=== PATIENT | female | born 2000 | race Caucasian/White ===

== ENCOUNTER 2019-02-04 18:54 | Inpatient (IN) ==
[2019-02-04] MEDS ORDERED: ACETAMINOPHEN 500 MG TABLET PO STA (20:25)
[2019-02-04] MEDS ORDERED: SODIUM CHLORIDE 0.9% 1,000 ML IV STA ×2 (20:25→22:50)
[2019-02-04 20:49] LABS: Bilirubin,Total 0.5 MG/DL (0.2-1.0); Calcium 8.2 MG/DL (8.5-10.1); Osmolality,Calculated 262.7 MOS/KG (273-304); Total Protein 7.4 G/DL (6.4-8.3)
[2019-02-04 20:57] LABS: Basophils % 0.2 % (0.0-0.8); Hematocrit 31.8 VOL% (35.7-47.0); Hemoglobin 10.4 GM/DL (12.0-16.0); Immature Granulocytes % 0.6 %; Immature Granulocytes Absolute 0.11 #; Lymphocytes # 1.2 10*3/uL (1.4-4.0); Lymphocytes % 6.8 % (21.3-54.2); Mean Corpuscular HGB Conc 32.7 GM/DL (32-36); Mean Corpuscular Volume 84.6 FL (87-102); Mean Platelet Volume 11.5 FL (9.6-12.0); Neutrophils % 83.4 % (38.7-73.9); Platelet Count 190 T/CUMM (130-400); Red Blood Count 3.76 MC/CUMM (3.8-5.5); Red Cell Distribution Width 14.6 % (9.3-17.3); White Blood Count 17.1 T/CUMM (4-12)
[2019-02-04] MEDS ORDERED: LEVOFLOXACIN INJ 750 MG in PREMIX 1 EACH IV STA (21:57)
[2019-02-04 22:08] LABS: Sedimentation Rate-Westergren 106 MM/HR (0-20)
[2019-02-04 22:13] LABS: Apearance,Urine CLOUDY (Clear); Bacteria,Urine Many /HPF (Few); Bilirubin,Urine Negative (Negative); Blood, Urine Large mg/dL (Negative); Glucose,Urine (UA) Negative (Negative); Ketones,Urine Negative (Negative); Mucus,Urine Few /LPF (Occasional); Nitrite,Urine Positive (Negative); Protein,Urine 100 MG/DL; RBC,Urine 27 /HPF (0-4); Squamous Epithelial Cell,Urine Occasional /HPF (0-10); Urine Color Amber (Yellow); Urine Specific Gravity 1.017 (1.001-1.035); Urine Urobilinogen < 2.0 EU/DL (0.2-1.0); WBC,Urine 418 /HPF (0-6)
[2019-02-05] MEDS ORDERED: SODIUM CHLOR 0.9% KCL 40 MEQ 40 MEQ/1,000 ML BAG IV SCH (01:00)
[2019-02-05] MEDS: SODIUM CHLORIDE 0.9% 1,000 ML IV SCH ×3 (02:14→14:45)
[2019-02-05 05:25] LABS: Basophils % 0.3 % (0.0-0.8); Eosinophils % 0.2 % (0.00-10.9); Hematocrit 27.9 VOL% (35.7-47.0); Hemoglobin 9.1 GM/DL (12.0-16.0); Immature Granulocytes % 0.7 %; Immature Granulocytes Absolute 0.09 #; Lymphocytes # 1.7 10*3/uL (1.4-4.0); Lymphocytes % 13.1 % (21.3-54.2); Mean Corpuscular HGB Conc 32.6 GM/DL (32-36); Mean Corpuscular Volume 86.1 FL (87-102); Mean Platelet Volume 10.8 FL (9.6-12.0); Monocytes % 15.4 % (1.7-12.7); Neutrophils % 70.3 % (38.7-73.9); Platelet Count 173 T/CUMM (130-400); Red Blood Count 3.24 MC/CUMM (3.8-5.5); Red Cell Distribution Width 14.8 % (9.3-17.3); White Blood Count 12.6 T/CUMM (4-12)
[2019-02-05 05:57] LABS: Albumin 2.3 G/DL (3.4-5.0); Bilirubin,Total 0.4 MG/DL (0.2-1.0); Total Protein 6.2 G/DL (6.4-8.3)
[2019-02-05 06:00] LABS: Hypochromasia 1+; Microcytosis Slight; Ovalocytes Slight; Platelet Estimate Adequate
[2019-02-05] MEDS: ACETAMINOPHEN 325 MG TABLET PO PRN ×4 (06:50→20:27)
[2019-02-05] MEDS: PANTOPRAZOLE 40 MG TABLET PO SCH (08:20)
[2019-02-05] MEDS: ENOXAPARIN 40 MG/0.4 ML SYRINGE SUBCUT SCH (08:20)
[2019-02-05 17:22] LABS: % Iron Saturation 3.3 % (18-50); Ferritin 73.4 ng/ml (8-252)
[2019-02-05 17:34] LABS: Folate 7.9 NG/ML (5.4-24.0)
[2019-02-05] MEDS: ONDANSETRON 4 MG/2 ML VIAL IV PRN (20:27)
[2019-02-05] MEDS ORDERED: KETOROLAC 30 MG/1 ML VIAL IV ONE (20:53)
[2019-02-05] MEDS: LEVOFLOXACIN INJ 750 MG in PREMIX 1 EACH IV SCH (21:09)
[2019-02-06] MEDS: SODIUM CHLORIDE 0.9% 1,000 ML IV SCH ×3 (00:58→18:05)
[2019-02-06 05:16] LABS: Basophils % 0.3 % (0.0-0.8); Eosinophils # 0.1 10*3/uL (0.0-0.87); Eosinophils % 1.1 % (0.00-10.9); Hematocrit 28.8 VOL% (35.7-47.0); Hemoglobin 9.2 GM/DL (12.0-16.0); Immature Granulocytes % 1.2 %; Immature Granulocytes Absolute 0.11 #; Mean Corpuscular HGB Conc 31.9 GM/DL (32-36); Mean Platelet Volume 11.1 FL (9.6-12.0); Neutrophils % 59.4 % (38.7-73.9); Platelet Count 199 T/CUMM (130-400); Red Blood Count 3.31 MC/CUMM (3.8-5.5); Red Cell Distribution Width 14.9 % (9.3-17.3); White Blood Count 9.3 T/CUMM (4-12)
[2019-02-06 05:41] LABS: Burr Cells Slight; Hypochromasia 1+; Lymphocytes 23 % (20-55); Ovalocytes Slight; Platelet Estimate Adequate; Segmented Neutrophils 64 % (50-85); Total Cells Counted 100
[2019-02-06 05:42] LABS: Microcytosis Slight
[2019-02-06] MEDS: FERROUS SULFATE 325 MG TABLET PO SCH ×3 (09:41→21:21)
[2019-02-06] MEDS: ENOXAPARIN 40 MG/0.4 ML SYRINGE SUBCUT SCH (09:41)
[2019-02-06] MEDS: PANTOPRAZOLE 40 MG TABLET PO SCH (09:41)
[2019-02-06] MEDS: ACETAMINOPHEN 325 MG TABLET PO PRN (11:00)
[2019-02-06] MEDS ORDERED: GENTAMICIN INJ 280 MG in SODIUM CHLORIDE 0.9% 100 ML IV ONE (11:00)
[2019-02-06] MEDS: LEVOFLOXACIN INJ 750 MG in PREMIX 1 EACH IV SCH (21:22)
[2019-02-07] MEDS: SODIUM CHLORIDE 0.9% 1,000 ML IV SCH ×3 (01:39→10:09)
[2019-02-07 07:57] LABS: Basophils % 0.4 % (0.0-0.8); Eosinophils % 0.8 % (0.00-10.9); Immature Granulocytes % 0.8 %; Immature Granulocytes Absolute 0.04 #; Lymphocytes # 1.2 10*3/uL (1.4-4.0); Lymphocytes % 22.7 % (21.3-54.2); Mean Corpuscular HGB Conc 32.1 GM/DL (32-36); Mean Corpuscular Volume 86.4 FL (87-102); Mean Platelet Volume 10.4 FL (9.6-12.0); Monocytes % 12.1 % (1.7-12.7); Neutrophils % 63.2 % (38.7-73.9); Platelet Count 211 T/CUMM (130-400); Red Blood Count 3.24 MC/CUMM (3.8-5.5); Red Cell Distribution Width 14.9 % (9.3-17.3); White Blood Count 5.3 T/CUMM (4-12)
[2019-02-07 08:17] LABS: Alanine Aminotransferase 31 U/L (13-56); Albumin 2.2 G/DL (3.4-5.0); Alkaline Phosphatase 80 U/L (45-117); Aspartate Amino Transferase 16 U/L (0-37); Bilirubin,Total < 0.39 MG/DL (0.2-1.0); Blood Urea Nitrogen 3 MG/DL (7-18); Calcium 8.5 MG/DL (8.5-10.1); Estimated Glom Filtration Rate 121 ML/MIN; Glucose 96 MG/DL (74-106); Osmolality,Calculated 277.3 MOS/KG (273-304); Total Protein 6.3 G/DL (6.4-8.3)
[2019-02-07] MEDS: ONDANSETRON 4 MG/2 ML VIAL IV PRN (08:28)
[2019-02-07] MEDS ORDERED: LEVOFLOXACIN 500 MG TABLET PO SCH (09:00)
[2019-02-07] MEDS ORDERED: KETOROLAC 30 MG/1 ML VIAL IV ONE (09:36)
[2019-02-07] MEDS ORDERED: PROCHLORPERAZINE 10 MG TABLET PO ONE (10:00)
[2019-02-07] MEDS: PANTOPRAZOLE 40 MG TABLET PO SCH (10:10)
[2019-02-07] MEDS: FERROUS SULFATE 325 MG TABLET PO SCH ×2 (10:10→14:29)
[2019-02-07] MEDS: ENOXAPARIN 40 MG/0.4 ML SYRINGE SUBCUT SCH (10:14)
[2019-02-07 11:48] VITALS: BP 118/73
== END 2019-02-07 15:20 | disposition home or self-care (01) | DRG 690 ==
LOC: N.ED 18:54 → N.EDINP 23:45 → N.5E 23:58
PROVIDERS: ADMIT Family Medicine; ATTEND Family Medicine

== ENCOUNTER 2019-07-12 20:10 | Inpatient (IN) ==
[2019-07-12] MEDS ORDERED: SODIUM CHLORIDE 0.9% 1,000 ML IV STA (20:42)
[2019-07-12] MEDS ORDERED: ONDANSETRON 4 MG/2 ML VIAL IV STA (20:42)
[2019-07-12] MEDS ORDERED: KETOROLAC 30 MG/1 ML VIAL IV STA (20:44)
[2019-07-12 21:09] LABS: Basophils # 0.1 10*3/uL (0.0-0.2); Basophils % 0.3 % (0.0-0.8); Eosinophils # 0.1 10*3/uL (0.0-0.87); Eosinophils % 0.4 % (0.00-10.9); Hematocrit 38.3 VOL% (35.7-47.0); Hemoglobin 12.5 GM/DL (12.0-16.0); Immature Granulocytes % 0.5 %; Lymphocytes # 1.4 10*3/uL (1.4-4.0); Lymphocytes % 6.6 % (21.3-54.2); Mean Corpuscular HGB Conc 32.6 GM/DL (32-36); Monocytes % 7.2 % (1.7-12.7); Platelet Count 328 T/CUMM (130-400); Red Blood Count 4.35 MC/CUMM (3.8-5.5); Red Cell Distribution Width 13.3 % (9.3-17.3); White Blood Count 20.8 T/CUMM (4-12)
[2019-07-12 21:17] LABS: Apearance,Urine CLOUDY (Clear); Bacteria,Urine Many /HPF (Few); Bilirubin,Urine Negative (Negative); Blood, Urine Moderate mg/dL (Negative); Glucose,Urine (UA) Negative (Negative); Ketones,Urine Negative (Negative); Nitrite,Urine Positive (Negative); Protein,Urine 100 MG/DL; RBC,Urine 86 /HPF (0-4); Squamous Epithelial Cell,Urine Moderate /HPF (0-10); Urine Color Yellow (Yellow); Urine Specific Gravity 1.018 (1.001-1.035); Urine Urobilinogen < 2.0 EU/DL (0.2-1.0); WBC,Urine 2189 /HPF (0-6)
[2019-07-12 21:23] LABS: Albumin 4.2 G/DL (3.4-5.0); Bilirubin,Total 0.5 MG/DL (0.2-1.0); Calcium 9.3 MG/DL (8.5-10.1); Osmolality,Calculated 272.8 MOS/KG (273-304); Total Protein 8.8 G/DL (6.4-8.3)
[2019-07-12] MEDS ORDERED: AMPICILLIN/SULBACTAM 3,000 MG in SODIUM CHLORIDE 0.9% 100 ML IV STA (21:23)
[2019-07-12 21:40] LABS: Eosinophils 1 % (0-10); Lymphocytes 6 % (20-55); Segmented Neutrophils 90 % (50-85); Total Cells Counted 100
[2019-07-12 21:42] LABS: Anisocytosis Slight; Microcytosis Slight; Platelet Estimate Normal
[2019-07-12] MEDS ORDERED: guaiFENesin/DM ER 600-30 MG TABLET PO PRN (23:25)
[2019-07-12] MEDS ORDERED: PROMETHAZINE 25 MG/1 ML VIAL IM PRN (23:25)
[2019-07-12] MEDS ORDERED: ONDANSETRON 4 MG/2 ML VIAL IV PRN (23:25)
[2019-07-12] MEDS ORDERED: GLUCAGON 1 MG VIAL IM PRN (23:25)
[2019-07-12] MEDS ORDERED: NICOTINE 21 MG/24 HR PATCH TRANSDERM PRN (23:25)
[2019-07-12] MEDS ORDERED: MORPHINE 4 MG/1 ML VIAL IV PRN (23:25)
[2019-07-12] MEDS ORDERED: ALBUTEROL 2.5 MG/3 ML NEB RESP TX PRN (23:25)
[2019-07-12] MEDS ORDERED: hydrALAZINE 20 MG/1 ML VIAL IV PRN (23:25)
[2019-07-12] MEDS ORDERED: diphenhydrAMINE CAP 25 MG CAPSULE PO PRN (23:25)
[2019-07-12] MEDS ORDERED: DEXTROSE 50% 25 GM/50 ML VIAL IV PRN (23:25)
[2019-07-12] MEDS ORDERED: ZALEPLON 5 MG CAPSULE PO PRN (23:25)
[2019-07-12] MEDS ORDERED: POTASSIUM CHLORIDE 20 MEQ TABLET PO ONE (23:29)
[2019-07-13] MEDS: SODIUM CHLORIDE 0.9% 1,000 ML IV SCH ×3 (00:58→17:04)
[2019-07-13] MEDS: cefTRIAXone 1,000 MG in SYRINGE 1 EACH IV SCH (00:59)
[2019-07-13 06:06] LABS: Basophils % 0.1 % (0.0-0.8); Eosinophils # 0.1 10*3/uL (0.0-0.87); Eosinophils % 0.4 % (0.00-10.9); Hematocrit 31.3 VOL% (35.7-47.0); Hemoglobin 9.9 GM/DL (12.0-16.0); Immature Granulocytes % 0.5 %; Immature Granulocytes Absolute 0.07 #; Lymphocytes # 1.3 10*3/uL (1.4-4.0); Lymphocytes % 9.5 % (21.3-54.2); Mean Corpuscular HGB Conc 31.6 GM/DL (32-36); Mean Corpuscular Volume 90.2 FL (87-102); Mean Platelet Volume 11.1 FL (9.6-12.0); Monocytes % 9.8 % (1.7-12.7); Neutrophils % 79.7 % (38.7-73.9); Platelet Count 268 T/CUMM (130-400); Red Blood Count 3.47 MC/CUMM (3.8-5.5); Red Cell Distribution Width 13.4 % (9.3-17.3); White Blood Count 13.8 T/CUMM (4-12)
[2019-07-13] MEDS: ACETAMINOPHEN 325 MG TABLET PO PRN ×2 (07:31→17:47)
[2019-07-13] MEDS: PHENAZOPYRIDINE 95 MG TABLET PO SCH ×3 (10:37→18:25)
[2019-07-13] MEDS: DOCUSATE SODIUM 100 MG CAPSULE PO SCH ×2 (10:37→20:50)
[2019-07-13] MEDS: ENOXAPARIN 40 MG/0.4 ML SYRINGE SUBCUT SCH (10:37)
[2019-07-13] MEDS: PANTOPRAZOLE 40 MG TABLET PO SCH (12:35)
[2019-07-13 13:07] LABS: Osmolality,Calculated 270.8 MOS/KG (273-304)
[2019-07-13] MEDS: TAMSULOSIN 0.4 MG CAPSULE PO SCH (20:50)
[2019-07-14] MEDS: SODIUM CHLORIDE 0.9% 1,000 ML IV SCH ×2 (00:58→08:55)
[2019-07-14] MEDS: cefTRIAXone 1,000 MG in SYRINGE 1 EACH IV SCH (00:59)
[2019-07-14] MEDS: ACETAMINOPHEN 325 MG TABLET PO PRN (03:32)
[2019-07-14] MEDS: PANTOPRAZOLE 40 MG TABLET PO SCH ×2 (07:57→11:56)
[2019-07-14] MEDS ORDERED: LIDOCAINE 2% TOP JELLY 20 ML VIAL INTRAURETH ONE (09:25)
[2019-07-14] MEDS ORDERED: LACTATED RINGERS 500 ML IV ONE (09:55)
[2019-07-14] MEDS ORDERED: ONDANSETRON 4 MG/2 ML VIAL IV PRN (09:56)
[2019-07-14] MEDS ORDERED: HYDROmorphone 2 MG/1 ML VIAL IV PRN (09:56)
[2019-07-14] MEDS ORDERED: LIDOCAINE 2% 5 ML VIAL ONE (09:59)
[2019-07-14] MEDS ORDERED: propofoL 200 MG/20 ML VIAL IV ONE (09:59)
[2019-07-14] MEDS ORDERED: ROCURONIUM 100 MG/10 ML VIAL IV ONE (10:00)
[2019-07-14] MEDS ORDERED: LACTATED RINGERS 1,000 ML IV ONE (10:00)
[2019-07-14] MEDS ORDERED: PHENYLEPHRINE 10 MG/1 ML VIAL IV ONE (10:00)
[2019-07-14] MEDS ORDERED: fentaNYL 100 MCG/2 ML VIAL ONE (10:00)
[2019-07-14] MEDS ORDERED: SODIUM CHLORIDE 0.9% 100 ML IV ONE (10:00)
[2019-07-14] MEDS ORDERED: PHENYLEPHRINE 1 MG/10 ML SYRINGE IV ONE (10:00)
[2019-07-14] MEDS ORDERED: ONDANSETRON 4 MG/2 ML VIAL ONE (10:00)
[2019-07-14] MEDS ORDERED: SEVOFLURANE 1 UNIT/15 MINUTE INH ONE (10:00)
[2019-07-14] MEDS ORDERED: SUCCINYLCHOLINE 200 MG/10 ML VIAL ONE (10:00)
[2019-07-14] MEDS ORDERED: KETOROLAC 30 MG/1 ML VIAL ONE (10:01)
[2019-07-14] MEDS: ENOXAPARIN 40 MG/0.4 ML SYRINGE SUBCUT SCH (11:55)
[2019-07-14] MEDS: DOCUSATE SODIUM 100 MG CAPSULE PO SCH (12:02)
[2019-07-14] MEDS: TAMSULOSIN 0.4 MG CAPSULE PO SCH (12:03)
[2019-07-14] MEDS: PHENAZOPYRIDINE 95 MG TABLET PO SCH ×2 (12:03→12:08)
[2019-07-14 15:05] VITALS: BP 105/63
== END 2019-07-14 16:45 | disposition home or self-care (01) | DRG 661 ==
LOC: N.ED 20:10 → SUATTDRO 23:25 → N.EDINP 23:25 → N.3E 07-13 00:12
PROVIDERS: ADMIT Internal Medicine; ATTEND Internal Medicine